=== PATIENT | male | born 1955 | race Caucasian/White ===

== ENCOUNTER 2023-01-20 08:43 | Emergency (ER) | payer MEDICARE, OTHER ==
[~2023-01-20] VITALS: Ht 182.9 cm; Wt 77.8 kg
[2023-01-20 08:54] VITALS: BP 148/105; PULSE 117; RESP 16; TEMP 98.2; O2SAT 99
--- NOTE | 2023-01-20 08:59 | NUR ---
PT REFUSES TO PROVIDE URINE SAMPLE AT THIS TIME
[2023-01-20 09:29] LABS: BASOPHILS # (AUTO) 0.1 X10'3 (0-0.2); BASOPHILS % (AUTO) 0.6 % (0-1); EOSINOPHILS # (AUTO) 0.1 X10'3 (0-0.9); HEMATOCRIT 46.9 % (42.0-52.0); HEMOGLOBIN 16.4 g/dl (14.0-17.9); LYMPHOCYTES # (AUTO) 1.4 X10'3 (1.1-4.8); LYMPHOCYTES % (AUTO) 16.6 % (21-51); MEAN CORPUSCULAR HGB CONC 34.8 g/dL (33.0-36.5); MEAN CORPUSCULAR VOLUME 106.2 FL (78-98); MEAN PLATELET VOLUME 6.7 FL (7.4-10.4); MONOCYTES # (AUTO) 0.7 X10'3 (0-0.9); MONOCYTES % (AUTO) 8.5 % (2-12); NEUTROPHILS # (AUTO) 5.9 X10'3 (1.8-7.7); NEUTROPHILS % (AUTO) 73.3 % (42-75); PLATELET COUNT 242 X10'3 (140-440); RED BLOOD COUNT 4.42 X10'6 (4.70-6.10); RED CELL DISTRIBUTION WIDTH 14.6 % (11.5-14.5); WHITE BLOOD COUNT 8.1 X10'3 (4.5-11.0)
[2023-01-20 09:44] LABS: ALANINE AMINOTRANSFERASE 20 U/L (12-78); ALBUMIN 2.7 G/DL (3.4-5.0); ALBUMIN/GLOBULIN RATIO 0.8 (1.1-1.5); ALKALINE PHOSPHATASE 58 IU/L (46-116); ANION GAP 10 (8-16); ASPARTATE AMINO TRANSFERASE 26 U/L (10-37); BILIRUBIN,TOTAL 1.3 MG/DL (0.1-1.0); BLOOD UREA NITROGEN 11 MG/DL (7-18); BUN/CREATININE RATIO 9.6 (10.0-20.0); CALCIUM 8.9 MG/DL (8.5-10.1); CHLORIDE 106 MMOL/L (99-107); CREATININE 1.15 MG/DL (0.60-1.10); GLUCOSE 107 MG/DL (70-104); POTASSIUM 3.7 MMOL/L (3.5-5.1); SODIUM 141 MMOL/L (135-145); TOTAL CARBON DIOXIDE 25.1 MMOL/L (24-32); TOTAL PROTEIN 6.3 G/DL (6.4-8.2); eCRCL 67 ML/MIN; eGFR 63 ML/MIN
[2023-01-20 09:54] LABS: LIPASE 31 U/L (16-77)
== END 2023-01-20 11:14 | disposition left against medical advice (07) ==
LOC: ER 08:43
DX: R63.0 Anorexia (principal); R10.10 Upper abdominal pain, unspecified; Z53.21 Procedure and treatment not carried out due to patient leaving prior to being seen by health care provider
CPT/HCPCS: 36415; 80053; 83690; 85025; 99281

== ENCOUNTER 2024-09-11 20:18 | Emergency (ER) | payer MEDICARE, OTHER ==
[~2024-09-11] VITALS: Ht 172.7 cm; Wt 84.0 kg
[2024-09-11 20:50] LABS: BILIRUBIN,URINE NEGATIVE (Neg); CLARITY,URINE CLEAR (Clear); COLOR,URINE YELLOW (Yellow); GLUCOSE, URINE NEGATIVE (Neg); KETONES,URINE NEGATIVE (Neg); LEUKOCYTE ESTERASE ,URINE NEGATIVE (Neg); NITRITES, URINE NEGATIVE (Neg); OCCULT BLOOD,URINE NEGATIVE (Neg); PROTEIN,URINE NEGATIVE (Neg); UROBILINOGEN,URINE 0.2 E.U/dL (0.2-1.0)
[2024-09-11 20:54] LABS: BASOPHILS % (AUTO) 0.6 % (0-1); EOSINOPHILS # (AUTO) 0.1 X10'3 (0-0.9); EOSINOPHILS % (AUTO) 1.5 % (0-6); HEMATOCRIT 36.7 % (42.0-52.0); HEMOGLOBIN 12.2 g/dl (14.0-17.9); LYMPHOCYTES # (AUTO) 1.7 X10'3 (1.1-4.8); LYMPHOCYTES % (AUTO) 30.1 % (21-51); MEAN CORPUSCULAR HEMOGLOBIN 30.2 PG (27.0-31.0); MEAN CORPUSCULAR HGB CONC 33.3 g/dL (33.0-36.5); MEAN CORPUSCULAR VOLUME 90.8 FL (78-98); MEAN PLATELET VOLUME 6.3 FL (7.4-10.4); MONOCYTES # (AUTO) 0.7 X10'3 (0-0.9); MONOCYTES % (AUTO) 11.5 % (2-12); NEUTROPHILS # (AUTO) 3.3 X10'3 (1.8-7.7); NEUTROPHILS % (AUTO) 56.3 % (42-75); PLATELET COUNT 237 X10'3 (140-440); RED BLOOD COUNT 4.04 X10'6 (4.70-6.10); RED CELL DISTRIBUTION WIDTH 15.4 % (11.5-14.5); WHITE BLOOD COUNT 5.8 X10'3 (4.5-11.0)
[2024-09-11] MEDS ORDERED: ASPI-280 PO (20:54)
[2024-09-11 20:59] LABS: UA COLLECTION TYPE CLN CATCH MIDSTREAM
[2024-09-11 21:04] LABS: URINE AMPHETAMINE SCREEN NEGATIVE (Neg); URINE BARBITUATE SCREEN NEGATIVE (Neg); URINE BENZODIAZEPINES SCREEN NEGATIVE (Neg); URINE CANNABINOID SCREEN NEGATIVE (Neg); URINE COCAINE SCREEN NEGATIVE (Neg); URINE METHADONE SCREEN NEGATIVE (Neg); URINE OPIATE SCREEN NEGATIVE (Neg); URINE PHENCYCLIDINE SCREEN NEGATIVE (Neg)
[2024-09-11 21:26] LABS: ALANINE AMINOTRANSFERASE 15 U/L (12-78); ALBUMIN 2.9 G/DL (3.4-5.0); ALBUMIN/GLOBULIN RATIO 0.7 (1.1-1.5); ALKALINE PHOSPHATASE 63 IU/L (46-116); ANION GAP 11 (8-16); ASPARTATE AMINO TRANSFERASE 18 U/L (10-37); BILIRUBIN,TOTAL 0.4 MG/DL (0.1-1.0); BLOOD UREA NITROGEN 21 MG/DL (7-18); BUN/CREATININE RATIO 13.5 (10.0-20.0); CALCIUM 8.5 MG/DL (8.5-10.1); CHLORIDE 107 MMOL/L (99-107); CREATININE 1.55 MG/DL (0.60-1.10); ETHANOL 194 MG/DL (<10); GLUCOSE 98 MG/DL (70-104); POTASSIUM 4.2 MMOL/L (3.5-5.1); SODIUM 144 MMOL/L (135-145); THYROID STIMULATING HORMONE 7.85 ulU/ml (0.34-4.50); TOTAL CARBON DIOXIDE 25.8 MMOL/L (24-32); TOTAL PROTEIN 7.1 G/DL (6.4-8.2); eCRCL 43 ML/MIN; eGFR 45 ML/MIN
[2024-09-11 21:48] LABS: LIPASE 93 U/L (16-77)
--- NOTE | 2024-09-11 21:52 | Physician Documentation ---
History of Present Illness ~ Chief Complaint: Mental Health Eval Stated Complaint: PSYCH EVAL Time Seen by MD: 21:00 Primary Medical Doctor: N/A Mode of Arrival: POV HPI This is a 69-year-old male history of depression who presents by EMS with increasing symptoms of depression with suicidal thoughts without intention, though reporting means and possible plan if I decided to do it to use firearm at his home. Patient additionally reports ongoing health problems with possible inguinal hernia for the past week and one month of progressively worsening right-sided flank pain. Patient reports no fever or chills and no recent nausea or vomiting. Patient denies substance use today including no alcohol use. Patient reports he does not know what year it is as he does not track this type of thing Medication Reconciliation Allergies: Coded Allergies: hydrocodone bit (Unverified Adverse Reaction, Unknown, PANIC ATTACK, 01/20/23) Uncoded Allergies: MUSCLE RELAXANT (Allergy, Intermediate, RASH, 04/08/09) MUSCLE RELAXANT TYLENOL #3 (Adverse Reaction, Unknown, severelly panicy, 01/20/23) Scheduled Aspirin (Aspirin), 1 TAB PO DAILY, (Reported) Past Medical History Past Medical History: Hypertension, Chronic Back Pain Past Surgical History: orthopedic surgeries, tonsillectomy, other Alcohol Use: Other Drug Use: none Physical Exam Vital Signs: Temperature: 98.1, Source: Oral, Heart Rate: 94, Respiratory Rate: 15, BP: 119/65, Pulse Oximetry: 96, Weight: 84.050 Physical Exam VITALS: Reviewed and as above. GENERAL: Alert to person place and event, unable to state year, nontoxic appea ring, no apparent distress. HEENT: PERRLA, EOMI RESPIRATORY: No increased work of breathing, no respiratory distress, speaking in full clear sentences, your lung sounds in all naranjo CHEST: CV: Regular rate and rhythm no murmur BACK: Right CVA tenderness GI: Nondistended MUSCULOSKELETAL: SKIN: NEURO: PSYCH: Progress Results/Orders Results/Orders Medications Received in ER Medications (Trade) Dose Ordered Sig/Altaf Route PRN Reason Start Time Stop Time Status Last Admin Dose Admin (aspirin 81MG chew tablet) 81 mg DAILY PO 09/12/24 08:00 09/12/24 07:10 81 MG Vital Signs 09/11/24 09/11/24 09/12/24 09/12/24 20:24 20:59 05:50 08:41 Temp 98.1 98.1 Pulse 94 96 Resp 15 18 B/P (MAP) 119/65 150/103 (119) Pulse Ox 96 100 Laboratory Tests Test 09/11/24 20:34 09/11/24 20:36 09/11/24 20:42 White Blood Count 5.8 Red Blood Count 4.04 L Hemoglobin 12.2 L Hematocrit 36.7 L Mean Corpuscular Volume 90.8 Mean Corpuscular Hemoglobin 30.2 Mean Corpuscular Hemoglobin Concent 33.3 Red Cell Distribution Width 15.4 H Platelet Count 237 Mean Platelet Volume 6.3 L Neutrophils (%) (Auto) 56.3 Lymphocytes (%) (Auto) 30.1 Monocytes (%) (Auto) 11.5 Eosinophils (%) (Auto) 1.5 Basophils (%) (Auto) 0.6 Neutrophils # (Auto) 3.3 Lymphocytes # (Auto) 1.7 Monocytes # (Auto) 0.7 Eosinophils # (Auto) 0.1 Basophils # (Auto) 0.0 CBC Comment Sodium Level 144 Potassium Level 4.2 Chloride Level 107 Carbon Dioxide Level 25.8 Anion Gap 11 Blood Urea Nitrogen 21 H Creatinine 1.55 H Estimated GFR/1.73 m2 45 BUN/Creatinine Ratio 13.5 Glucose Level 98 Calcium Level 8.5 Total Bilirubin 0.4 Aspartate Amino Transf (AST/SGOT) 18 Alanine Aminotransferase (ALT/SGPT) 15 Alkaline Phosphatase 63 Total Protein 7.1 Albumin 2.9 L Globulin 4.2 Albumin/Globulin Ratio 0.7 L Lipase 93 H Thyroid Stimulating Hormone (TSH) 7.85 H Free Thyroxine 1.06 Chemistry Comments Ethyl Alcohol Level 194 H SARS-CoV-2 Antigen (Rapid) Negative Urine Specimen Description Cln catch midstream Urine Color Yellow Urine Clarity Clear Urine pH 6.0 Urine Specific [place] <=1.005 Urine Protein Negative Urine Glucose (UA) Negative Urine Ketones Negative Urine Occult Blood Negative Urine Nitrite Negative Urine Bilirubin Negative Urine Urobilinogen 0.2 Urine Leukocyte Esterase Negative Volume Urine Centrifuged 10 ml Urine Comment Urine Opiates Screen Negative Urine Methadone Screen Negative Urine Fentanyl Screen Negative Urine Barbiturates Screen Negative Urine Phencyclidine Screen Negative Urine Amphetamines Screen Negative Urine Benzodiazepines Screen Negative Urine Cocaine Screen Negative Urine Cannabinoids Screen Negative Drug Screen Comment Microbiology Date/Time Source Procedure Growth Status 09/11/24 20:42 Urine Clean Catch Midstream Urine Culture - Preliminary NO GROWTH AFTER 1 DAY Resulted Medical Decision Making Findings This 69-year-old male presented by EMS due to two months of depression patient seemed somewhat intoxicated my initial interview main some vague comments about suicidal ideation, given patient's access to firearms in statements about being ready to home with continued statements on re-examination after patient was allowed to sober up about transient thoughts of suicide I do feel patient is a threat to himself. Patient does have multiple pre-existing medical concerns including ascites and an enlarging inguinal hernia however neither of these seem to be in a medical emergency, CT scan was obtain due to patient's right-sided flank pain however no emergent intra abdominal process was identified on the CT. Patient is hemodynamically stable relatively benign lab work it is only significant for elevated TSH, remainder of physical exam was benign. Patient does have some evidence of some cognitive decline with report of poor long-term memory and unable to state the year on questioning however his oriented to person place and event with intact long-term memory. At this time I do not believe patient is experiencing an emergent medical condition and is stable for discharge and outpatient follow up including transfer for mental health treatment. Transfer orders for [facility]: At this time there is no evidence of an emergent medical condition that would preclude (admission/transfer) to a psychiatric unit via [facility] protocol for further psychiatric, as well as medical evaluation and treatment. At this time I have no reason to believe that transfer via [facility] would have serious medical compromise in the patient's health. Dr. Lu September 12, 2024 at 14 40 Patient was seen by mental health. He is not suicidal he is not homicidal he is not a gravely disabled. According to behavioral health he safe to be discharged home in the has a safety plan for him. Departure Disposition: 01 HOME / SELF CARE / HOMELESS Impression: Primary Impression: Suicidal ideation Additional Impression: Groin swelling Condition: Guarded Discharge Instructions: Depression, Adult, Suicidal Feelings: How to Help Yourself Additional Instructions: Transfer orders for [facility]: At this time there is no evidence of an emergent medical condition that would preclude (admission/transfer) to a psychiatric unit via [facility] protocol for further psychiatric, as well as medical evaluation and treatment. At this time I have no reason to believe that transfer via [facility] protocol would have serious medical compromise in the patient's health. Referrals: NO PRIMARY CARE PROVIDER (PCP) Education Educated: Patient Educated regarding: diagnosis Signature Scribe Signature: no scribe Attestation: no scribe SHANNON EPSTEIN Sep 11, 2024 21:52 NATI LU MD Sep 12, 2024 14:40
[2024-09-11] MEDS ORDERED: iohexol 300mg/ml 100ml inj. ONE (21:58)
--- NOTE | 2024-09-12 00:12 | RADIOLOGY REPORT ---
Exam: CT CT ABDOMEN PELVIS W/ IV CONTRAST History: Right flank pain and right groin pain Comparison Study: None Technique: Multidetector spiral CT of the abdomen and pelvis was performed from lung bases to pubic s ymphysis. Intravenous contrast was administered during this examination. Portal venous imaging was o btained. Axial, coronal and sagittal multiplanar reformats were performed by the technologist on a [employer] workstation. Radiation Dose : 1. Abdomen/Pelvis: CTDIvol 29 mGy, DLP 1669 mGy*cm. Findings: Lung Bases: No acute or significant lung base finding. Normal heart size. No pleural or pericardial effusion. Liver: The liver is normal in size. No focal lesions. Normal hepatic vascular enhancement. Gallbladder and Biliary Tree: Cholelithiasis Spleen: Unremarkable Pancreas: The pancreas is normal in appearance without focal lesions or abnormal enhancement. Adrenal Glands: Unremarkable Kidneys: Kidneys demonstrate normal symmetric enhancement without focal lesions, calculi or hydroneph rosis. 4 cm cyst arising from the left kidney. Bladder: Unremarkable Bowel: The stomach is grossly normal in appearance. Small bowel and colon are normal in caliber and d istribution. The appendix is not visualized; however, no secondary findings of acute appendicitis arnoldo ntified. Ascites: Large diffuse ascites Lymphadenopathy: No mesenteric, retroperitoneal or periportal lymphadenopathy. Abdominal Wall and Mesentery: Right inguinal hernia demonstrating large fluid collection from the asc ites. Vasculature: The visualized abdominal aorta is normal in size and caliber. Abdominal and pelvic vess els demonstrate normal enhancement. Pelvic Organs: Unremarkable Musculoskeletal: No aggressive focal bony lesions, acute fractures or dislocation. Fatty mass measuri ng up to 5.2 cm in the right abductor muscles. IMPRESSION: Large diffuse abdominal ascites with tracking into the right inguinal hernia causing large ascites co llection. Cholelithiasis. Ancillary findings as described above.
[2024-09-12 01:24] LABS: FREE T4 (FREE THYROXINE) 1.06 NG/DL (0.73-1.40)
[2024-09-12] MEDS: clonazePAM 0.5mg tablet PO ONE (01:46)
[2024-09-12] MEDS: aspirin 81mg tab.chew PO SCH (07:10)
[2024-09-12 14:47] VITALS: BP 150/103; PULSE 96; RESP 18; TEMP 98.1; O2SAT 100
== END 2024-09-12 16:13 | disposition home or self-care (01) ==
LOC: ER 20:19
DX: R45.851 Suicidal ideations (principal); R19.09 Other intra-abdominal and pelvic swelling, mass and lump; I10 Essential (primary) hypertension; Z90.89 Acquired absence of other organs; Z20.822 Contact with and (suspected) exposure to COVID-19
CPT/HCPCS: 36415; 74177; 80053; 80305; 81003; 83690; 84439; 84443; 85025; 87088; 87811; 99285; G0480; Q9967; 80320

== ENCOUNTER 2024-09-18 17:26 | Emergency (ER) | payer MEDICARE, OTHER ==
[~2024-09-18] VITALS: Ht 180.3 cm; Wt 82.9 kg
[~2024-09-18 17:26] MED LIST: ASPI-280 PO
[2024-09-18 18:13] LABS: BASOPHILS % (AUTO) 0.7 % (0-1); EOSINOPHILS # (AUTO) 0.1 X10'3 (0-0.9); EOSINOPHILS % (AUTO) 1.1 % (0-6); HEMATOCRIT 36.6 % (42.0-52.0); HEMOGLOBIN 12.3 g/dl (14.0-17.9); LYMPHOCYTES % (AUTO) 32.2 % (21-51); MEAN CORPUSCULAR HEMOGLOBIN 30.5 PG (27.0-31.0); MEAN CORPUSCULAR HGB CONC 33.5 g/dL (33.0-36.5); MEAN CORPUSCULAR VOLUME 90.9 FL (78-98); MEAN PLATELET VOLUME 6.4 FL (7.4-10.4); MONOCYTES # (AUTO) 0.6 X10'3 (0-0.9); MONOCYTES % (AUTO) 8.7 % (2-12); NEUTROPHILS # (AUTO) 3.6 X10'3 (1.8-7.7); NEUTROPHILS % (AUTO) 57.3 % (42-75); PLATELET COUNT 256 X10'3 (140-440); RED BLOOD COUNT 4.02 X10'6 (4.70-6.10); RED CELL DISTRIBUTION WIDTH 15.1 % (11.5-14.5); WHITE BLOOD COUNT 6.3 X10'3 (4.5-11.0)
[2024-09-18 18:36] LABS: ALBUMIN 2.9 G/DL (3.4-5.0); ANION GAP 9 (8-16); BLOOD UREA NITROGEN 14 MG/DL (7-18); CALCIUM 8.3 MG/DL (8.5-10.1); CHLORIDE 110 MMOL/L (99-107); ETHANOL 245 MG/DL (<10); GLUCOSE 100 MG/DL (70-104); POTASSIUM 3.8 MMOL/L (3.5-5.1); SODIUM 146 MMOL/L (135-145); THYROID STIMULATING HORMONE 3.08 ulU/ml (0.34-4.50); TOTAL CARBON DIOXIDE 27.3 MMOL/L (24-32); eCRCL 52 ML/MIN; eGFR 50 ML/MIN
[2024-09-18 18:48] LABS: BILIRUBIN,URINE NEGATIVE (Neg); CLARITY,URINE CLEAR (Clear); COLOR,URINE YELLOW (Yellow); GLUCOSE, URINE NEGATIVE (Neg); KETONES,URINE NEGATIVE (Neg); LEUKOCYTE ESTERASE ,URINE NEGATIVE (Neg); NITRITES, URINE NEGATIVE (Neg); OCCULT BLOOD,URINE NEGATIVE (Neg); PROTEIN,URINE NEGATIVE (Neg); UROBILINOGEN,URINE 0.2 E.U/dL (0.2-1.0)
[2024-09-18 18:53] LABS: UA COLLECTION TYPE NON-SPECIFIED
[2024-09-18 19:14] LABS: URINE AMPHETAMINE SCREEN NEGATIVE (Neg); URINE BARBITUATE SCREEN NEGATIVE (Neg); URINE BENZODIAZEPINES SCREEN NEGATIVE (Neg); URINE CANNABINOID SCREEN POSITIVE (Neg); URINE COCAINE SCREEN NEGATIVE (Neg); URINE METHADONE SCREEN NEGATIVE (Neg); URINE OPIATE SCREEN NEGATIVE (Neg); URINE PHENCYCLIDINE SCREEN NEGATIVE (Neg)
[2024-09-18] MEDS ORDERED: CLON0.5T2 PO (19:33)
[2024-09-18] MEDS ORDERED: clonazePAM 0.5mg tablet PO SCH (21:00)
[2024-09-18] MEDS: aspirin 81mg, enteric-coated 1 TAB TABLET.DR PO SCH (21:03)
[2024-09-18] MEDS: clonazePAM 0.5mg tablet PO PRN (21:03)
--- NOTE | 2024-09-19 02:30 | Physician Documentation ---
History of Present Illness ~ Chief Complaint: 5150 Stated Complaint: 5150 Time Seen by MD: 19:07 Primary Medical Doctor: N/A Mode of Arrival: POV HPI Patient is seen today stating that he was brought here against his will due to concern for being a danger to himself. Patient denies being a danger to others. Patient currently denies being a danger to himself. Patient states he was making comments about shooting himself to in his life however patient states he currently does not have any plans to kill himself. Patient denies any current chest pain or shortness of breath or abdominal pain or nausea, vomiting, diarrhea. He has no other concern or complaint at this time. Medication Reconciliation Allergies: Coded Allergies: hydrocodone bit (Unverified Adverse Reaction, Unknown, PANIC ATTACK, 01/20/23) Uncoded Allergies: MUSCLE RELAXANT (Allergy, Intermediate, RASH, 04/08/09) MUSCLE RELAXANT TYLENOL #3 (Adverse Reaction, Unknown, severelly panicy, 01/20/23) Scheduled Aspirin (Aspirin), 1 TAB PO DAILY, (Reported) Clonazepam (Klonopin), 0.5 MG PO HS, (Reported) Past Medical History Past Medical History: Hypertension, Chronic Back Pain Past Surgical History: orthopedic surgeries, tonsillectomy, other Alcohol Use: Other Drug Use: none Review of Systems Constitutional: Denies: chills, fever, weakness Eyes: Denies: pain, blurred vision ENT: Denies: ear pain, nose pain, throat pain, mouth pain Respiratory: Denies: cough, shortness of breath Cardiovascular: Denies: chest pain, palpitations Gastrointestinal: Denies: abdominal pain, nausea, vomiting Genitourinary: Denies: burning, dysuria Male Genitalia: Denies: penile discharge, testicular pain Neurological: Denies: headache, dizziness Musculoskeletal: Denies: pain, swelling Integumentary: Denies: rash, lesions Allergic/Immunologic: Denies: hives, itching Hematologic/Lymphatic: Denies: no symptoms reported Psychiatric: Denies: depression, anxiety Physical Exam Vital Signs: Temperature: 97.2, Source: Temporal, Heart Rate: 104, Respiratory Rate: 18, BP: 112/61, Pulse Oximetry: 97, Weight: 82.900 Physical Exam General: Awake and Alert, no acute distress. HEENT: Conjunctiva pink, Sclera clear, Mucus Membranes moist. Neck: Supple without masses and tenderness. Resp: Unlabored. Lungs clear to auscultation bilaterally. Heart: Regular Rate and rhythm, normal S1 and S2 without murmur, rub or gallop. Abdomen: Soft and non tender no organomegaly Extremities: No cyanosis,clubbing or edema. Skin: Warm and Dry. Progress Results/Orders Results/Orders Vital Signs 09/18/24 09/18/24 09/18/24 09/19/24 17:29 18:01 19:02 05:21 Temp 97.2 96.8 Pulse 104 89 Resp 16 18 18 20 B/P (MAP) 112/61 149/91 (110) Pulse Ox 97 98 09/19/24 09/19/24 09/20/24 09:13 17:57 05:57 Temp 96.8 97.2 Pulse 92 85 Resp 18 18 B/P (MAP) 169/94 (119) 147/100 (116) Pulse Ox 100 99 O2 Flow Rate 0 Laboratory Tests Test 09/18/24 18:03 09/18/24 18:20 09/18/24 18:35 White Blood Count 6.3 Red Blood Count 4.02 L Hemoglobin 12.3 L Hematocrit 36.6 L Mean Corpuscular Volume 90.9 Mean Corpuscular Hemoglobin 30.5 Mean Corpuscular Hemoglobin Concent 33.5 Red Cell Distribution Width 15.1 H Platelet Count 256 Mean Platelet Volume 6.4 L Neutrophils (%) (Auto) 57.3 Lymphocytes (%) (Auto) 32.2 Monocytes (%) (Auto) 8.7 Eosinophils (%) (Auto) 1.1 Basophils (%) (Auto) 0.7 Neutrophils # (Auto) 3.6 Lymphocytes # (Auto) 2.0 Monocytes # (Auto) 0.6 Eosinophils # (Auto) 0.1 Basophils # (Auto) 0.0 CBC Comment Sodium Level 146 H Potassium Level 3.8 Chloride Level 110 H Carbon Dioxide Level 27.3 Anion Gap 9 Blood Urea Nitrogen 14 Creatinine 1.40 H Estimated GFR/1.73 m2 50 BUN/Creatinine Ratio 10.0 Glucose Level 100 Calcium Level 8.3 L Albumin 2.9 L Thyroid Stimulating Hormone (TSH) 3.08 Chemistry Comments Ethyl Alcohol Level 245 H Urine Specimen Description Non-specified Urine Color Yellow Urine Clarity Clear Urine pH 6.0 Urine Specific [place] <=1.005 Urine Protein Negative Urine Glucose (UA) Negative Urine Ketones Negative Urine Occult Blood Negative Urine Nitrite Negative Urine Bilirubin Negative Urine Urobilinogen 0.2 Urine Leukocyte Esterase Negative Volume Urine Centrifuged 10 ml Urine Comment Urine Opiates Screen Negative Urine Methadone Screen Negative Urine Fentanyl Screen Negative Urine Barbiturates Screen Negative Urine Phencyclidine Screen Negative Urine Amphetamines Screen Negative Urine Benzodiazepines Screen Negative Urine Cocaine Screen Negative Urine Cannabinoids Screen Positive Drug Screen Comment SARS-CoV-2 Antigen (Rapid) Negative Medical Decision Making Findings Patient is seen today stating that he was brought here against his will due to concern for being a danger to himself. Patient denies being a danger to others. Patient currently denies being a danger to himself. Patient states he was making comments about shooting himself to in his life however patient states he currently does not have any plans to kill himself. Patient denies any current chest pain or shortness of breath or abdominal pain or nausea, vomiting, diarrhea. He has no other concern or complaint at this time. Patient is medically cleared for psychiatric evaluation. Departure Disposition: 30 STILL A PATIENT Impression: Primary Impression: Alcoholic intoxication Qualified Codes: F10.920 - Alcohol use, unspecified with intoxication, uncomplicated Additional Impressions: Suicidal ideation Depression Qualified Codes: F32.A - Depression, unspecified Condition: Stable Discharge Instructions: Suicidal Feelings: How to Help Yourself Additional Instructions: Transfer orders for [facility]: At this time there is no evidence of an emergent medical condition that would preclude (admission/transfer) to a psychiatric unit via [facility] protocol for further psychiatric, as well as medical evaluation and treatment. At this time I have no reason to believe that transfer via [facility] protocol would have serious medical compromise in the patient's health. Patient is medically cleared for psychiatric evaluation. Referrals: NO PRIMARY CARE PROVIDER (PCP) Signature Scribe Signature: No scribe Attestation: No scribe Addendum September 20, 2024, 6:30 a.m., took over care at shift change, no acute issues reported, patient is sleeping comfortably, await mental health evaluation for disposition plan. MARIA DE JESUS DAMICO Sep 19, 2024 02:30 NATI BENDER DO Sep 20, 2024 06:37
[2024-09-19] MEDS: clonazePAM 0.5mg tablet PO SCH (21:27)
[2024-09-20 13:47] VITALS: BP 132/92; PULSE 79; RESP 18; TEMP 98.3; O2SAT 98
== END 2024-09-20 13:49 | disposition still patient (30) ==
LOC: ER 17:26
DX: F10.129 Alcohol abuse with intoxication, unspecified (principal); R45.851 Suicidal ideations; F32.A Depression, unspecified; I10 Essential (primary) hypertension; Z90.89 Acquired absence of other organs; Z20.822 Contact with and (suspected) exposure to COVID-19; Z79.899 Other long term (current) drug therapy; Y90.9 Presence of alcohol in blood, level not specified
CPT/HCPCS: 36415; 80048; 80305; 81003; 84443; 85025; 87811; 99285; G0480; 80320

== ENCOUNTER 2024-10-05 08:08 | Emergency (ER) | payer MEDICARE, OTHER ==
[~2024-10-05] VITALS: Ht 177.8 cm; Wt 79.5 kg
[~2024-10-05 08:08] MED LIST changes: +CLON0.5T2 PO
[2024-10-05 08:10] VITALS: RESP 16; TEMP 97.5; O2SAT 99
--- NOTE | 2024-10-05 10:02 | Physician Documentation ---
History of Present Illness ~ General Chief Complaint: See Chief Complaint Stated Complaint: UNABLE TO EAT Time Seen by MD: 09:18 Primary Medical Doctor: N/A History of Present Illness Initial Comments 69-year-old male brought in by EMS for gagging on food. Patient with clarity states that he has not had a good appetite in months and it has decreased over the past few weeks. Patient lives alone but has son brings him care packages which includes food and protein shakes. Patient denies difficulty swallowing but the gagging as that is he does not feel hungry or want to eat. Patient states that is times when he does not eat or drink enough he feels dizzy when standing up. Patient denies any recent falls. Patient does have a primary care provider at a country. Patient denies any chest pain or shortness of breath. Medication Reconciliation Allergies: Coded Allergies: hydrocodone bit (Unverified Adverse Reaction, Unknown, PANIC ATTACK, 10/05/24) Uncoded Allergies: MUSCLE RELAXANT (Allergy, Intermediate, RASH, 04/08/09) MUSCLE RELAXANT TYLENOL #3 (Adverse Reaction, Unknown, severelly panicy, 01/20/23) Scheduled Aspirin (Aspirin), 1 TAB PO DAILY, (Reported) Clonazepam (Klonopin), 0.5 MG PO HS, (Reported) Past Medical History Past Medical History: Hypertension, Chronic Back Pain Past Surgical History: orthopedic surgeries, tonsillectomy, other Alcohol Use: Other Drug Use: none Lives with: Alone Lives In: Home Occupation: retired Review of Systems All Other Systems at this time: Reviewed and Negative Physical Exam Physical Exam Vital Signs: RN Vital Signs have been reviewed: Yes, Temperature: 97.5, Heart Rate: 89, Respiratory Rate: 16, BP: 148/92, Pulse Oximetry: 99, Weight: 79.550 Oxygen Flow Rate: 0 General Appearance: alert, WD/WN, no apparent distress Head: normal inspection; No: tender Face: normal inspection; No: swelling Oropharynx: moist mucous membranes; No: tonsillar hypertrophy Neck: non-tender Respiratory: lungs clear, normal breath sounds, no respiratory distress Chest: no accessory muscle use, chest non-tender Cardiovascular: normal peripheral pulses, regular rate, rhythm, no murmur; No: JVD Gastrointestinal: normal palpation, non-tender; No: rebound, guarding, rigidity Progress Results/Orders Results/Orders Orders - JHONATHAN,PIEDAD K [employer] (10/05/24 ) * Orthostatic Vitals* Q12H (10/05/24 10:13) Vital Signs 10/05/24 10/05/24 08:10 10:28 Temp 97.5 Pulse 89 84 90 88 Resp 16 B/P (MAP) 148/92 137/85 139/86 133/78 Pulse Ox 99 O2 Flow Rate 0 Medical Decision Making Findings Patient's vital signs are reassuring as well as physical exam patient is walking around. But p.o. challenge and get orthostatic vitals to his complaints of dizziness when standing up which to be due to dehydration or lack of caloric intake. Patient's orthostatics were unremarkable and negative. Patient was given food and water and was able to tolerate eating and drinking without gagging nausea or vomiting. Departure Time of Disposition: 11:09 Disposition: 01 HOME / SELF CARE / HOMELESS Impression: Primary Impression: Lack of appetite Condition: Stable Discharge Instructions: General Discharge Instructions Additional Instructions: F/U with primary care. It is important to stay hydrated to help away dizziness and is protein drinks to help with lack of appetite as you do need calories to maintain energy. Referrals: NO PRIMARY CARE PROVIDER (PCP) Education Educated: Patient Educated regarding: diagnosis, treatment, need for follow up Signature Scribe Signature: No scribe Attestation: The note accurately reflects work and decisions made by me.Piedad Hemphill - PROM BURN OFF OPERATOR 10/05/24 11:11 PIEDAD HEMPHILL NP Oct 05, 2024 10:02
[2024-10-05 10:28] VITALS: BP 133/78; PULSE 88
== END 2024-10-05 14:26 | disposition home or self-care (01) ==
LOC: ER 08:08
DX: R63.0 Anorexia (principal); I10 Essential (primary) hypertension; Z88.5 Allergy status to narcotic agent; Z79.899 Other long term (current) drug therapy; Z60.2 Problems related to living alone
CPT/HCPCS: 99283